=== PATIENT | female | born 1975 | race American Indian/Alaskan Native ===

== ENCOUNTER 2018-11-10 08:53 | Observation (INO) | payer SELFPAY ==
[2018-11-09 09:40] LABS: Basophils # (Auto) 0.1 K/mm3 (0.0-0.1); Basophils % (Auto) 0.6 % (0.0-1.8); Eosinophils # (Auto) 0.2 K/mm3 (0.0-0.4); Eosinophils % (Auto) 1.2 % (0.0-4.3); Hematocrit 27.5 % (30.3-42.9); Hemoglobin 8.9 gm/dl (10.1-14.3); Lymphocytes # (Auto) 3.1 K/mm3 (1.2-5.4); Lymphocytes % (Auto) 23.9 % (13.4-35.0); Mean Corpuscular HGB Conc 32 % (30-34); Mean Corpuscular Volume 78 fl (79-97); Monocytes # (Auto) 0.9 K/mm3 (0.0-0.8); Monocytes % (Auto) 6.9 % (0.0-7.3); Platelet Count 409 K/mm3 (140-440); Red Blood Count 3.51 M/mm3 (3.65-5.03)
--- NOTE | 2018-11-09 09:53 | Anesthesia Consultation ---
Anesthesia Consult and Med Hx Date of service: 11/09/18 - Airway Anesthetic Teeth Evaluation: Chipped ROM Head & Neck: Adequate Mental/Hyoid Distance: Adequate Mallampati Class: Class II Intubation Access Assessment: Probably Good - Pulmonary Exam CTA: Yes - Cardiac Exam Cardiac Exam: RRR - Pre-Operative Health Status ASA Pre-Surgery Classification: ASA3 Proposed Anesthetic Plan: General Nerve Block: discussed TAP block - Pre-Anesthesia Comment Pre-Anesthesia Comments: very nervous; doesn't want to know too much information regarding planp; states that mother had a hard time waking up to anesthesia; resulted in a prolonged hospital stay, denies MH or any adverse anesthesia reaction. s/p C/S under GA with no problems - Pulmonary Hx Smoking: Yes (2 cigarrettes/day ) - Cardiovascular System Hx Hypertension: No - Central Nervous System Hx Neuromuscular Disorder: No Hx Psychiatric Problems: No - Gastrointestinal Hx Gastroesophageal Reflux Disease: Yes (mild, no medications ) - Endocrine Hx Renal Disease: No - Hematic Hx Anemia: Yes Hx Sickle Cell Disease: Yes (Trait only) - Other Systems Hx Alcohol Use: Yes (occassional) Hx Cancer: No
[2018-11-09 09:57] LABS: Red Cell Distribution Width 20.7 % (13.2-15.2)
[~2018-11-10 08:53] MED LIST: NEURONTIN PO NR; PEPCID PO NR; VERSED IV NR
[2018-11-10] MEDS ORDERED: SUBLIMAZE IV NR (09:27)
--- NOTE | 2018-11-10 09:27 | Anesthesia Day of Surgery ---
Anesthesia Day of Surgery - Day of Surgery Patient Examined: Yes Patient H&P Reviewed: Yes Patient is NPO: Yes
[2018-11-10] MEDS ORDERED: SUBLIMAZE IV PRN (09:28)
[2018-11-10] MEDS ORDERED: ZOFRAN IV PRN (09:28)
[2018-11-10] MEDS ORDERED: DILAUDID IV PRN (09:28)
[2018-11-10] MEDS ORDERED: NEURONTIN PO NR (10:00)
[2018-11-10] MEDS ORDERED: TYLENOL PO NR (10:00)
[2018-11-10] MEDS ORDERED: TORADOL ONE (10:19)
[2018-11-10] MEDS ORDERED: DECADRON ONE ×2 (10:19→11:13)
[2018-11-10] MEDS ORDERED: XYLOCAINE MPF 2% ONE (10:19)
[2018-11-10] MEDS ORDERED: ZOFRAN ONE (10:19)
[2018-11-10] MEDS ORDERED: DILAUDID ONE ×2 (10:19→14:58)
[2018-11-10] MEDS ORDERED: ZEMURON IV ONE (10:19)
[2018-11-10] MEDS ORDERED: DIPRIVAN 10 MG/ML IV ONE (10:20)
--- NOTE | 2018-11-10 10:24 | History and Physical Report ---
History of Present Illness Date of examination: 11/10/18 Chief complaint: Symptomatic uterine fibroids History of present illness: Pt is a 43yo BF LMP 11/02/18 presents for surgical evaluation and treatment of uterine fibroids. She complains of prolonged heavy vaginal bleeding and pelvic pain. Pelvic u/s showed an enlarged uterus 13 x 8 x 7cm with multiple fibroids. She desires a Robotic Assisted Total Hysterectomy with ovarian conservation. 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 History: fibroids Family/Genetic History: sickle cell/trait Social history: no significant social history, single Medications and Allergies Allergies Allergy/AdvReac Type Severity Reaction Status Date / Time No Known Allergies Allergy Unverified 11/05/18 08:48 Home Medications Medication Instructions Recorded Confirmed Last Taken Type Atorvastatin Calcium [Lipitor] 10 mg PO DAILY 11/05/18 11/05/18 Unknown History Ferrous Sulfate [Iron 325 MG] 325 mg PO TID 11/05/18 11/05/18 Unknown History Gabapentin [Neurontin] 300 mg PO BID 11/05/18 11/05/18 Unknown History Vitamin D3 10,000 unit 1 tab PO QWEEK 11/05/18 11/05/18 Unknown History Active Meds: Active Medications Acetaminophen (Tylenol) 650 mg PO PREOP NR Stop: 11/10/18 14:00 Celecoxib (Celebrex) 200 mg PO PREOP NR Fentanyl (Sublimaze) 100 mcg IV ONCE NR Stop: 11/10/18 15:00 Fentanyl (Sublimaze) 50 mcg IV Q5MIN PRN PRN Reason: Pain , Severe (7-10) Gabapentin (Neurontin) 300 mg PO PREOP NR Stop: 11/10/18 13:00 Hydromorphone HCl (Dilaudid) 0.5 mg IV Q10MIN PRN PRN Reason: Pain , Severe (7-10) Stop: 11/10/18 20:00 Midazolam HCl (Versed) 2 mg IV PREOP NR Stop: 11/10/18 23:59 Ondansetron HCl (Zofran) 4 mg IV ONCE PRN PRN Reason: Nausea And Vomiting Review of Systems All systems: negative - Vital Signs Vital signs: Vital Signs Temp Pulse Resp BP Pulse Ox 98.5 F 92 H 20 139/92 100 11/09/18 09:15 11/09/18 09:15 11/09/18 09:15 11/09/18 09:15 11/09/18 09:15 Temp Pulse Resp BP Pulse Ox 98.5 F 92 H 20 139/92 100 11/09/18 09:15 11/09/18 09:15 11/09/18 09:15 11/09/18 09:15 11/09/18 09:15 - Physical Exam Breasts: Positive: deferred Cardiovascular: Regular rate Lungs: Positive: Clear to auscultation Abdomen: Positive: normal appearance, soft Genitourinary (Female): Positive: normal external genitalia Vagina: Positive: normal moisture Uterus: Positive: enlarged Extremities: Positive: normal Results Result Diagrams: 11/09/18 09:28 Abnormal lab results 11/10/18 Range/Units 10:20 POC Glucose 218 H (70-105) All other labs normal. Ultrasound: report reviewed Assessment and Plan - Patient Problems (1) Uterine fibroid Onset Date: 11/10/18 Current Visit: Yes Status: Acute Qualifiers: Uterine leiomyoma location: intramural, submucous, and subserous Qualified Code(s): D25.1 - Intramural leiomyoma of uterus; D25.0 - Submucous leiomyoma of uterus; D25.2 - Subserosal leiomyoma of uterus Plan to address problem: A: Symptomatic uterine fibroids Menorrhagia Chronic blood loss anemia P: Admit for a Robotic-Assisted Total Hysterectomy with Bilateral salpingectomy (2) Menorrhagia with regular cycle Onset Date: 11/10/18 Current Visit: Yes Status: Chronic (3) Chronic blood loss anemia Onset Date: 11/10/18 Current Visit: Yes Status: Chronic
[2018-11-10] MEDS ORDERED: NEOSPORIN GU IR ONE ×2 (10:29→13:03)
[2018-11-10] MEDS ORDERED: NACL 0.9% 1000 ML 1,000 ML ONE (10:30)
[2018-11-10] MEDS ORDERED: ANCEF/STERILE WATER 2 GM/20 ML 2 GM/20 ML SYRINGE IV NR (11:00)
[2018-11-10] MEDS ORDERED: NACL 0.9% 1000 ML 1,000 ML IV SCH (11:00)
[2018-11-10] MEDS ORDERED: MARCAINE-EPI 0.5%-1:200,000 INFILTRATI ONE (11:13)
[2018-11-10] MEDS ORDERED: XYLOCAINE 1% 20 mL ONE (11:13)
[2018-11-10] MEDS: VERSED IV NR ×2 (11:17→11:24)
[2018-11-10] MEDS ORDERED: NACL 0.9% IR ONE ×2 (13:03)
[2018-11-10] MEDS ORDERED: ROBINUL ONE (14:11)
[2018-11-10] MEDS ORDERED: BLOXIVERZ ONE (14:11)
--- NOTE | 2018-11-10 14:12 | Operative Report ---
Operative Report Operative Report: Date of procedure: 11/10/2018 Pre-operative diagnosis: 1. Symptomatic uterine fibroids 2. Menorrhagia 3. Chronic blood loss anemia Post-operative diagnosis: Same Procedure name(s): 1. Robotic-Assisted Total Hysterectomy 2. Bilateral salpingectomy Surgeon: Robby Melissa MD High Lift Driver: Masha Peters CSA Anesthesia: BREANNE Block followed by general endotracheal intubation EBL: Less than 100 mL's Findings: A 12-14 week size multiple myomatous uterus with a right hydrosalpinx and normal left fallopian tube. Normal ovaries bilaterally. Procedure: After the patient's first correctly identified she was prepped and draped in the usual sterile fashion and placed in the dorsolithotomy position. The bladder was first catheterized using Dickerson catheter and the speculum was placed in the vagina and the anterior lip of the cervix was grasped using a single-tooth tenaculum, and the medium Vesicare cup was placed. The tenaculum and speculum was then removed from the vagina and attention was then turned to the abdomen. The skin knife was used to make a small incision approximately 5 cm above the umbilicus through which a 12 mm trocar was placed under direct visualization. After adequate amount of abdominal insufflation visualization of the pelvic organs found the uterus to be enlarged and the tubes and ovaries were found to be normal bilaterally. A right and left paramedian incision was made through which the 8 mm trochars were placed under direct visualization and a 5 mm trocar was placed in the right lower quadrant. The patient was then placed in steep Trendelenburg positioning and the robot was docked on the patient's left side. After all the robotic ports were connected and adequate functioning of the robotic arms were tested the surgeon then proceeded to the console to begin the hysterectomy. First the left round ligament was grasped, cauterized and cut, the left utero- ovarian ligaments were grasped, cauterized and cut, and the left fallopian tube also grasped, cauterized and cut along the mesosalpinx, thus freeing the left ovary from the left uterine sidewall. The same procedure was performed on the right. The right round ligament was grasped, cauterized and cut, the right utero-ovarian ligaments were grasped, cauterized and cut, and the right fallopia n tube also grasped, cauterized and cut along the mesosalpinx, thus freeing the right ovary from the right uterine sidewall. The bladder flap was taken down anteriorly and the uterine vessels were grasped, cauterized and cut bilaterally. The cardinal ligaments were sequentially grasped, cauterized and cut down to the level of the uterosacral ligaments. At this time the posterior colpotomy was performed over the Vcare cup, and the cervix was circumscribed beginning posteriorly and meeting anteriorly until the cervix was freed. The cervix and uterus was then removed through the vagina and sent to pathology. The vaginal cuff was then closed using 2-0 Vloc suture in a running fashion. Irrigation was then performed and after good hemostasis was achieved the procedure was considered complete. The Tisseel sealant was then sprayed across the vaginal cuff site, and after excellent hemostasis was assured Interceed was placed across the vaginal cuff site. The intra-abdominal pressure was dropped to 8 mmHg and excellent hemostasis was assured. All instruments were then removed from the abdominal cavity. And each incision was closed using 0 Vicryl suture in a [id number] configuration on the fascia followed by 4-0 Monocryl suture in a sub-cuticular fashion on the skin. Each incision was also infiltrated using 0.5% Marcaine solution. The vaginal pack was removed. The patient tolerated the procedure well and was transported to the recovery room in stable condition.
[2018-11-10] MEDS ORDERED: TYLENOL PO PRN (14:13)
[2018-11-10] MEDS ORDERED: NARCAN 0.4 MG/1 ML IV PRN (14:13)
[2018-11-10] MEDS ORDERED: SODIUM CHLORIDE FLUSH SYRINGE 10 ML IV PRN (14:13)
[2018-11-10] MEDS ORDERED: PERCOCET 5/325 PO PRN (14:13)
[2018-11-10] MEDS ORDERED: MILK OF MAGNESIA PO PRN (14:13)
[2018-11-10] MEDS: ZOFRAN IV PRN ×2 (14:30→19:01)
[2018-11-10] MEDS ORDERED: D5LR 1,000 ML IV SCH (15:00)
--- NOTE | 2018-11-10 15:03 | Post Anesthesia Evaluation ---
- Post Anesthesia Evaluation Patient Participated: Yes Airway Patent: Yes Stable Respiratory Function: Yes Nausea/Vomiting: No Temp > 96.8F: Yes Pain Manageable: Yes Adequeate Hydration: Yes Anesthesia Complications: No
[2018-11-10] MEDS ORDERED: D50W (25GM) Syringe IV PRN (15:47)
[2018-11-10] MEDS: NORCO 5/325 PO PRN (18:32)
[2018-11-10] MEDS: TORADOL IV SCH ×2 (20:10→22:00)
[2018-11-10] MEDS: ANCEF/NS 1 GM/50 ML 1 GM/50 ML BAG IV SCH (20:44)
[2018-11-10] MEDS: COLACE PO SCH (22:00)
[2018-11-11] MEDS: HumuLIN R SUB-Q SCH ×3 (00:25→13:15)
[2018-11-11] MEDS: ANCEF/NS 1 GM/50 ML 1 GM/50 ML BAG IV SCH (03:36)
[2018-11-11] MEDS: TORADOL IV SCH ×2 (03:36→10:18)
[2018-11-11 06:23] LABS: Hematocrit 25.6 % (30.3-42.9); Hemoglobin 8.3 gm/dl (10.1-14.3)
--- NOTE | 2018-11-11 09:12 | Progress Note ---
Assessment and Plan - Patient Problems (1) Uterine fibroid Onset Date: 11/10/18 Current Visit: Yes Status: Resolved Qualifiers: Uterine leiomyoma location: intramural, submucous, and subserous Qualified Code(s): D25.1 - Intramural leiomyoma of uterus; D25.0 - Submucous leiomyoma of uterus; D25.2 - Subserosal leiomyoma of uterus (2) Menorrhagia with regular cycle Onset Date: 11/10/18 Current Visit: Yes Status: Resolved (3) Chronic blood loss anemia Onset Date: 11/10/18 Current Visit: Yes Status: Chronic (4) S/P robot-assisted surgical procedure Onset Date: 11/11/18 Current Visit: Yes Status: Resolved Plan to address problem: A: S/P RATH - POD #1 Doing well Asymptomatic anemia - stable P: May go home today. Subjective - Subjective Date of service: 11/11/18 Principal diagnosis: s/p RATH - POD #1 Interval history: Pt is feeling well s/p a Robotic Assisted Total Hysterectomy with bilateral salpingectomy. She is tolerating a reg diet without nausea or vomiting, ambulating and voiding without difficulty. Patient reports: appetite normal, voiding normally, pain well controlled, flatus, ambulating normally, no dizzy ambulation, no nauseated Objective - Vital Signs Latest vital signs: Vital Signs Temp Pulse Resp Resp BP BP Pulse Ox 11/11/18 04:25 98.2 F 89 18 133/81 100 11/10/18 23:55 99 11/10/18 23:54 97.5 F L 91 H 18 130/78 67 L 11/10/18 20:10 18 11/10/18 19:47 98.6 F 107 H 20 121/77 100 11/10/18 15:59 98.3 F 93 H 18 124/81 11/10/18 15:38 98 H 18 126/83 95 11/10/18 14:55 14 11/10/18 14:35 83 18 113/70 99 11/10/18 14:25 18 11/10/18 14:15 87 20 122/69 100 11/10/18 14:10 88 20 115/74 100 11/10/18 14:02 97 F L 94 H 20 118/72 100 11/10/18 11:47 16 11/10/18 11:35 116 H 18 116/66 100 11/10/18 11:32 115 H 22 127/80 100 11/10/18 11:29 104 H 17 110/70 100 11/10/18 11:26 99 H 16 115/71 100 11/10/18 11:23 92 H 19 119/72 100 11/10/18 11:20 99 H 19 120/70 100 11/10/18 11:17 99 H 17 132/98 100 11/10/18 11:14 96 H 12 128/78 100 11/10/18 11:11 97 H 16 120/75 100 11/10/18 10:15 16 11/10/18 09:35 98.2 F 106 H 18 132/79 98 11/10/18 09:30 98.2 F 106 H 18 132/79 98 Intake and Output 11/10/18 11/11/18 11/11/18 22:59 06:59 14:59 Intake Total 290 120 Output Total 1450 800 Balance -1160 -680 Intake: IV 50 ANCEF/NS 1 GM/50 ML 1 gm 50 In 50 ml @ 100 mls/hr IV Q8H [facility] Rx#:[id number] Oral 240 Intake, Free Water 120 Output: Urine 1450 800 Indwelling Catheter 900 Uretheral (Dickerson) 500 800 Other: Total, Intake Amount 240 Total, Output Amount 300 Voiding Method Indwelling Catheter Toilet - Exam Abdomen: Present: normal appearance, soft Extremities: Present: normal Incision: Present: normal, dry, intact - Labs Labs: Abnormal lab results 11/10/18 11/10/18 11/11/18 Range/Units 10:20 22:39 06:11 Hgb 8.3 L (10.1-14.3) gm/dl Hct 25.6 L (30.3-42.9) % POC Glucose 218 H 177 H (70-105) 11/11/18 Range/Units 08:39 Hgb (10.1-14.3) gm/dl Hct (30.3-42.9) % POC Glucose 150 H (70-105) Laboratory Tests 11/09/18 11/09/18 11/10/18 09:28 09:28 10:00 WBC 12.9 H RBC 3.51 L Hgb 8.9 L Hct 27.5 L MCV 78 L MCH 25 L MCHC 32 RDW 20.7 H Plt Count 409 Lymph % (Auto) 23.9 [place]wood % (Auto) 6.9 Eos % (Auto) 1.2 Baso % (Auto) 0.6 Lymph # 3.1 [place]wood # 0.9 H Eos # 0.2 Baso # 0.1 Seg Neutrophils % 67.4 Seg Neutrophils # 8.7 H POC Glucose HCG, Qual Negative Blood Type A POSITIVE Antibody Screen Negative 11/10/18 11/10/18 11/11/18 10:20 22:39 06:11 WBC RBC Hgb 8.3 L Hct 25.6 L MCV MCH MCHC RDW Plt Count Lymph % (Auto) [place]wood % (Auto) Eos % (Auto) Baso % (Auto) Lymph # [place]wood # Eos # Baso # Seg Neutrophils % Seg Neutrophils # POC Glucose 218 H 177 H HCG, Qual Blood Type Antibody Screen 11/11/18 08:39 WBC RBC Hgb Hct MCV MCH MCHC RDW Plt Count Lymph % (Auto) [place] % (Auto) Eos % (Auto) Baso % (Auto) Lymph # [place]wood # Eos # Baso # Seg Neutrophils % Seg Neutrophils # POC Glucose 150 H HCG, Qual Blood Type Antibody Screen
--- NOTE | 2018-11-11 09:39 | Discharge Summary ---
Providers - Providers Date of Admission: 11/10/18 14:13 Date of discharge: 11/11/18 Attending physician: HILARY ELI [facility] Reason for admission: other (Symptomatic uterine fibroids; Menorrhagia) Procedure: other (Robotic Assisted Total Hysterectomy with Bilateral salpingectomy) Laceration: none Incision: normal, dry, intact Other procedures: none complications: none Discharge diagnosis: other (s/p RATH) Hospital course: Pt is a 43yo BF LMP 11/02/18 who presented for surgical evaluation and treatment of uterine fibroids. She complained of prolonged heavy vaginal bleeding and pelvic pain. Pelvic u/s showed an enlarged uterus 13 x 8 x 7cm with multiple fibroids. She underwent an uncomplicated Robotic Assisted Total Hysterectomy with Bilateral salpingectomy, and tolerated the procedure well. By POD #1 she was tolerating a reg diet without nausea or vomiting, ambulating and voiding without difficulty. She will therefore be discharged to home on POD #1 in stable condition. Condition at discharge: Good Disposition: DC-01 TO HOME OR SELFCARE - Discharge Diagnoses (1) Uterine fibroid Status: Resolved Qualifiers: Uterine leiomyoma location: intramural, submucous, and subserous Qualified Code(s): D25.1 - Intramural leiomyoma of uterus; D25.0 - Submucous leiomyoma of uterus; D25.2 - Subserosal leiomyoma of uterus (2) Menorrhagia with regular cycle Status: Resolved (3) Chronic blood loss anemia Status: Chronic (4) S/P robot-assisted surgical procedure Status: Resolved Plan - Discharge Medications Prescriptions: Ibuprofen [Motrin] 800 mg PO Q8HR PRN #30 tablet PRN Reason: Pain, Mild (1-3) HYDROcodone/APAP 5-325 [Sumner 5-325 mg TAB] 1 each PO Q6HR PRN #30 tablet PRN Reason: Pain, Moderate (4-6) - Provider Discharge Summary Activity: routine, no sex for 6 weeks, no heavy lifting 4 weeks, no strenuous exercise Diet: routine Instructions: routine Additional instructions: [] Smoking cessation referral if applicable(refer to patient education folder for contact #) [] Refer to [facility] Booklet Call your doctor immediately for: * Fever > 100.5 * Heavy vaginal bleeding ( >1 pad per hour) * Severe persistent headache * Shortness of breath * Reddened, hot, painful area to leg or breast * Drainage or odor from incision. * Keep incision clean and dry at all times and follow doctor's instructions regarding bathing/showering - Follow up plan Follow up: HILARY ELI MD [Staff Physician] - 14 Days RICHMOND TANIA DODSON MD [Primary Care Provider] - 14 Days
[2018-11-11] MEDS: COLACE PO SCH (10:19)
[2018-11-11] MEDS: NORCO 5/325 PO PRN (10:24)
[2018-11-11 12:42] VITALS: BP 119/82
== END 2018-11-11 12:25 | disposition home or self-care (01) ==
LOC: OR 08:53 → OB 14:13
PROVIDERS: ADMIT Obstetrics & Gynecology; ATTEND Obstetrics & Gynecology
DX: D25.9 Leiomyoma of uterus, unspecified (principal); N92.0 Excessive and frequent menstruation with regular cycle; D50.0 Iron deficiency anemia secondary to blood loss (chronic); Z98.890 Other specified postprocedural states; Z79.899 Other long term (current) drug therapy; Z90.710 Acquired absence of both cervix and uterus
CPT/HCPCS: 36415; 58554; 82962; 84703; 85014; 85018; 85025; 86850; 86900; 86901; 88307; 88342; 96365; 96366; 96375; 96376; A4217; C1765; C9250; G0378; J0690; J1100; J1170; J1885; J2250; J2405; J2704; J2710; J3010; J7030; J7121; S2900; 88341

== ENCOUNTER 2018-11-19 10:55 | Inpatient (IN) | payer OTHER, SELFPAY ==
[2018-11-19] MEDS ORDERED: ZOFRAN IV ONE (11:08)
[2018-11-19] MEDS ORDERED: MORPHINE IV ONE (11:08)
--- NOTE | 2018-11-19 11:15 | Emergency Department Report ---
Blank Doc - Documentation Documentation: 43 y/o female comes in s/p Hysterectomy 11/10/18 and is having severe abd pain. Surgeon Dr. Robby Melissa OB/ DRILLING MACHINE RUNNER Orderes has been placed.
[2018-11-19] MEDS ORDERED: NACL 0.9% 500 ML 500 ML IV ONE (11:37)
[2018-11-19 11:44] LABS: Alanine Aminotransferase 37 units/L (7-56); Albumin 3.7 g/dL (3.9-5); BUN/Creatinine Ratio 10; Basophils # (Auto) 0.1 K/mm3 (0.0-0.1); Basophils % (Auto) 1.3 % (0.0-1.8); Blood Urea Nitrogen 6 mg/dL (7-17); Calcium 9.5 mg/dL (8.4-10.2); Eosinophils # (Auto) 0.1 K/mm3 (0.0-0.4); Eosinophils % (Auto) 1.1 % (0.0-4.3); Hemoglobin 9.6 gm/dl (10.1-14.3); Hemolysis Index 53; Lymphocytes # (Auto) 2.3 K/mm3 (1.2-5.4); Lymphocytes % (Auto) 20.4 % (13.4-35.0); Mean Corpuscular HGB Conc 32 % (30-34); Mean Corpuscular Volume 80 fl (79-97); Monocytes # (Auto) 0.7 K/mm3 (0.0-0.8); Monocytes % (Auto) 6.6 % (0.0-7.3); Platelet Count 571 K/mm3 (140-440); Red Blood Count 3.74 M/mm3 (3.65-5.03)
[2018-11-19 11:47] LABS: Red Cell Distribution Width 22.9 % (13.2-15.2)
--- NOTE | 2018-11-19 12:19 | Emergency Department Report ---
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 The patient is not known to this provider previously. The patient reports a history of high cholesterol, and possible diabetic neuropathy The patient had a robotic-assisted total hysterectomy, and bilateral salpingectomy performed on 11/10/2018. She presents to the emergency room with a complaint of abdominal pain. The abdominal pain is diffuse, and present since the patient recovered from surgery. The pain is achy and sharp, increases with palpation and decreases with rest. She vomited a few times last week. She's not been defecating as often as she typically does. Her last episode of defecat ion was last night. She is passing gas. She denies fever. She denies chest pain. She denies shortness of breath. She makes no complaint of leg pain or leg swelling. She also endorses that postoperatively, her urinary sensations appear to have changed. She denies dysuria. She reports that she is able to hold her urine, and she has not accidentally urinated on herself. However, she reports that her sensation of needing to void is not present away it was prior to the surgery. -: Gradual, week(s) Location: abdomen Radiation: non-radiation Severity scale (0 -10): 5 Quality: aching Consistency: other Improves with: other - Related Data Home Medications Medication Instructions Recorded Confirmed Last Taken Atorvastatin Calcium [Lipitor] 10 mg PO DAILY 11/05/18 11/10/18 11/08/18 09:00 Ferrous Sulfate [Iron 325 MG] 325 mg PO TID 11/05/18 11/10/18 11/08/18 09:00 Gabapentin [Neurontin] 300 mg PO BID 11/05/18 11/10/18 Unknown Vitamin D3 10,000 unit 1 tab PO QWEEK 11/05/18 11/10/18 11/09/18 09:00 Previous Rx's Medication Instructions Recorded Last Taken Type HYDROcodone/APAP 5-325 [[place] 1 each PO Q6HR PRN #30 tablet 11/11/18 Unknown Rx 5-325 mg TAB] Ibuprofen [Motrin] 800 mg PO Q8HR PRN #30 tablet 11/11/18 Unknown Rx Allergies Allergy/AdvReac Type Severity Reaction Status Date / Time No Known Allergies Allergy Verified 11/19/18 10:57 ED Review of Systems ROS: Stated complaint: ABD PAIN Other details as noted in HPI Constitutional: denies: fever Eyes: denies: eye discharge ENT: denies: ear pain Respiratory: denies: cough, shortness of breath Cardiovascular: denies: chest pain Gastrointestinal: abdominal pain, nausea, vomiting Genitourinary: denies: urgency, dysuria, hematuria, discharge Musculoskeletal: denies: back pain Skin: denies: lesions Neurological: denies: weakness, numbness, paresthesias, confusion Psychiatric: anxiety ED Past Medical Hx - Past Medical History Hx Hypertension: Yes Hx Congestive Heart Failure: No Hx Diabetes: Yes Hx Asthma: No Hx COPD: No Additional medical history: HIGH CHOLESTROL - Surgical History Additional Surgical History: HYSTO - Social History Smoking Status: Current Every Day Smoker Substance Use Type: None - Medications Home Medications: Home Medications Medication Instructions Recorded Confirmed Last Taken Type Atorvastatin Calcium [Lipitor] 10 mg PO DAILY 11/05/18 11/10/18 11/08/18 09:00 History Ferrous Sulfate [Iron 325 MG] 325 mg PO TID 11/05/18 11/10/18 11/08/18 09:00 History Gabapentin [Neurontin] 300 mg PO BID 11/05/18 11/10/18 Unknown History Vitamin D3 10,000 unit 1 tab PO QWEEK 11/05/18 11/10/18 11/09/18 09:00 History HYDROcodone/APAP 5-325 [[place] 1 each PO Q6HR PRN #30 tablet 11/11/18 Unknown Rx 5-325 mg TAB] Ibuprofen [Motrin] 800 mg PO Q8HR PRN #30 tablet 11/11/18 Unknown Rx ED Physical Exam - General Limitations: No Limitations General appearance: alert, in no apparent distress - Head Head exam: Present: atraumatic, normocephalic - Eye Eye exam: Present: normal appearance, EOMI. Absent: nystagmus - ENT ENT exam: Present: normal exam, normal orophraynx, mucous membranes moist, normal external ear exam - Neck Neck exam: Present: normal inspection, full ROM. Absent: tenderness, meningismus - Respiratory Respiratory exam: Present: normal lung sounds bilaterally. Absent: respiratory distress - Cardiovascular Cardiovascular Exam: Present: regular rate, normal rhythm, normal heart sounds. Absent: bradycardia, tachycardia, irregular rhythm, systolic murmur, diastolic murmur, rubs, gallop - GI/Abdominal GI/Abdominal exam: Present: soft, tenderness, other (surgical sites appear to be healing well, with no redness, pus or streaking). Absent: distended, guarding, rebound, rigid, pulsatile mass - Extremities Exam Extremities exam: Present: normal inspection, full ROM, other (2+ pulses noted in the bilateral upper, lower extremities. Compartments soft. No long bony tenderness. The pelvis is stable.). Absent: pedal edema, joint swelling, calf tenderness - Back Exam Back exam: Present: normal inspection, full ROM. Absent: tenderness, CVA tenderness (R), paraspinal tenderness, vertebral tenderness - Neurological Exam Neurological exam: Present: alert, normal gait, other (Extraocular movements intact. Tongue midline. No facial droop. Facial sensation intact to light touch in the V1, V2, V3 distribution bilaterally. 5 and 5 strength in 4 extremities.. Sensation is intact to light touch in 4 extremities.). Absent: motor sensory deficit - Psychiatric Psychiatric exam: Present: normal affect, normal mood - Skin Skin exam: Present: warm, dry, intact, normal color. Absent: rash ED Course Vital Signs 11/19/18 11/19/18 11/19/18 11:06 11:31 15:12 Temperature 97.8 F Pulse Rate 107 H 93 H 91 H Respiratory 18 19 16 Rate Blood Pressure 146/89 Blood Pressure 108/69 [Left] O2 Sat by Pulse 100 100 96 Oximetry - Reevaluation(s) Reevaluation #1: 11/19/18 12:20 Differential diagnosis, including but not limited to: Retained foreign body, obstruction, infection, post anesthetic medication side effect, opioid medi cation side effect, constipation, decreased her dysfunction Assessment and plan: 43-year-old female with abdominal pain since her recent gynecologic surgery. She is afebrile with reassuring vital signs. She is tender diffusely. She does not appear to have rebound. Patient is also able to urinate and control her urination, but endorses nonspecific change in sensation of needing to void. We will obtain CT scan of the abdomen and pelvis with IV, oral contrast. Extensive discussion had with t he patient regarding risks of CT scan with IV contrast, including exposure to ionizing radiation, and potential risk of anaphylactic/anaphylactoid side effects secondary to contrast administration. Patient has provided informed consent. We will treat her symptoms and her pain. We will discuss with her fitter hand after the CT scan has resulted. She will need to follow up with an outpatient urologist, or uro fitter hand for further evaluation of her nonspecific urinary symptoms. Reevaluation #2: 11/19/18 16:47 CT scan suggests abscesses. Antibiotics ordered. Contacted the patient's covering fitter hand, Dr. Melissa, who has accepted the patient to his service. Discussed this with patient who verbalizes understanding, and is amenable to hospitalization. ED Medical Decision Making - Lab Data Result diagrams: 11/19/18 11:20 11/19/18 11:20 Vital Signs 11/19/18 11/19/18 11:06 11:31 Temperature 97.8 F Pulse Rate 107 H 93 H Respiratory 18 19 Rate Blood Pressure 146/89 O2 Sat by Pulse 100 100 Oximetry Lab Results 11/19/18 11/19/18 Range/Units 11:20 11:20 WBC 11.0 (4.5-11.0) K/mm3 RBC 3.74 (3.65-5.03) M/mm3 Hgb 9.6 L (10.1-14.3) gm/dl Hct 30.0 L (30.3-42.9) % MCV 80 (79-97) fl MCH 26 L (28-32) pg MCHC 32 (30-34) % RDW 22.9 H (13.2-15.2) % Plt Count 571 H (140-440) K/mm3 Lymph % (Auto) 20.4 (13.4-35.0) % Rankin % (Auto) 6.6 (0.0-7.3) % Eos % (Auto) 1.1 (0.0-4.3) % Baso % (Auto) 1.3 (0.0-1.8) % Lymph # 2.3 (1.2-5.4) K/mm3 Rankin # 0.7 (0.0-0.8) K/mm3 Eos # 0.1 (0.0-0.4) K/mm3 Baso # 0.1 (0.0-0.1) K/mm3 Seg Neutrophils % 70.6 H (40.0-70.0) % Seg Neutrophils # 7.8 H (1.8-7.7) K/mm3 Sodium 139 (137-145) mmol/L Potassium 4.9 (3.6-5.0) mmol/L Chloride 101.2 (98-107) mmol/L Carbon Dioxide 22 (22-30) mmol/L Anion Gap 21 mmol/L BUN 6 L (7-17) mg/dL Creatinine 0.6 L (0.7-1.2) mg/dL Estimated GFR > 60 ml/min BUN/Creatinine Ratio 10 % Glucose 181 H (65-100) mg/dL Calcium 9.5 (8.4-10.2) mg/dL Total Bilirubin < 0.20 (0.1-1.2) mg/dL AST 41 H (5-40) units/L ALT 37 (7-56) units/L Alkaline Phosphatase 121 (35-129) units/L Total Protein 8.0 (6.3-8.2) g/dL Albumin 3.7 L (3.9-5) g/dL Albumin/Globulin Ratio 0.9 % - Radiology Data Radiology results: report reviewed, image reviewed Print Report Referring Physician: YONY MORRIS Patient Name: LEDA GOODMAN Date of : 1975 Sex: Female Report Date: 2018-11-19 Report Status: [place] [address] Cat Scan Report Signed Patient: LEDA GOODMAN MR#: [id number] : 1975 Acct:[id number] Age/Sex: 43 / F ADM Date: 11/19/18 Loc: ED Attending Dr: Ordering Physician: YONY MORRIS MD Date of Service: 11/19/18 Procedure(s): CT abdomen pelvis w con Accession Number(s): [id number] cc: YONY MORRIS MD PROCEDURE: CT ABDOMEN PELVIS W CON TECHNIQUE: Computerized axial tomography of the abdomen and pelvis was performed without intravenous contrast. This study is performed without intravascular contrast mat erial and its sensitivity for abdominal and pelvic pathology, including neoplasms, inflammation, abscess, free fluid, thrombosis, arterial dissection and infarction, is reduced compared with a contrast enhanced study. CT DOSE LENGTH PRODUCT: 3028 mGycm HISTORY: abd pain s/p hysterectomy. IV and oral contrast COMPARISONS: None . FINDINGS: Lower Lung gamez: No focal abnormalities seen. Upper Abdomen: Liver density mildly diffusely decreased. No discrete liver lesions are identified. The appearance suggests fatty infiltration. The gallbladder, the adrenal glands, the pancreas and spleen are unremarkable. Kidneys, Ureters and Urinary bladder: No abnormalities are seen. Retroperitoneum: Abdominal aorta appears normal. Nonspecific subcentimeter lymph nodes are seen in the retroperitoneum. No pathologically enlarged lymph nodes are identified. Bowel: No focal bowel loop abnormalities are identified. No evidence of bowel obstruction or free intraperitoneal gas. Normal-appearing appendix. The visualized right lower quadrant directed medially. Small to moderate-sized umbilical hernia containing adipose tissue is visualized. No herniated loops of bowel are seen. There appears to be a second anterior abdominal wall hernia seen best on sagittal image 98 series 601 which appears to contain edematous adipose tissue.. This is located superior to the umbilicus. Irregular shaped fluid collections are seen in the pelvis.. One of these fluid collection contains multiple bubbles of gas located mid pelvis.. I cannot exclude an abscess. This collection measures 6.7 cm transverse, 2.7 cm AP on image 153 series 2. Additional smaller fluid collection seen just anterior to the rectum measuring 3.5 x 2.4 cm. . Reproductive organs: The uterus is surgically absent. No abnormal adnexal masses are seen. Other: No acute bone abnormalities are identified. IMPRESSION: 2 fluid collections are seen in the pelvis, small fluid collection anterior to the rectum and a second fluid collection in the mid pelvis. The larger of the 2 is in the mid pelvis and contains multiple bubbles of gas. The appearance is worrisome for abscess. Umbilical hernia present as described as well as additional small anterior abdominal wall hernia in the midline superior to the umbilicus. This appears to contain a small amount of adipose tissue which appears dense suggesting diffuse edema. Please see above image reference May. Prior hysterectomy. Fatty infiltration of the liver. This document is electronically signed by Julian Josue MD., Nov 19 2018 04:38:26 PM ET Transcribed By: DFN Dictated By: JULIAN JOSUE MD Electronically Authenticated By: JULIAN JOSUE MD Signed Date/Time: 11/19/18 [facility] Critical care attestation.: If time is entered above; I have spent that time in minutes in the direct care of this critically ill patient, excluding procedure time. ED Disposition Clinical Impression: Postoperative pain, Intra-abdominal abscess Disposition: OP ADMIT IP TO THIS HOSP Is pt being admited?: Yes Condition: Good Instructions: Abdominal Pain (ED) Referrals: [place] [Other] - 3-5 Days
[2018-11-19 12:24] LABS: Bilirubin,Urine NEG (Negative); Blood,Urine NEG (Negative); Color,Urine Yellow (Yellow); Protein,Urine <15 mg/dL mg/dL (Negative); RBC,Urine < 1.0 /HPF (0.0-6.0); Urobilinogen,Urine < 2.0 mg/dL (<2.0)
--- NOTE | 2018-11-19 16:40 | Cat Scan Report ---
PROCEDURE: CT ABDOMEN PELVIS W CON TECHNIQUE: Computerized axial tomography of the abdomen and pelvis was performed without intravenous contrast. This study is performed without intravascular contrast material and its sensitivity for ab dominal and pelvic pathology, including neoplasms, inflammation, abscess, free fluid, thrombosis, art erial dissection and infarction, is reduced compared with a contrast enhanced study. CT DOSE LENGTH PRODUCT: 3028 mGycm HISTORY: abd pain s/p hysterectomy. IV and oral contrast COMPARISONS: None . FINDINGS: Lower Lung gamez: No focal abnormalities seen. Upper Abdomen: Liver density mildly diffusely decreased. No discrete liver lesions are identified. T he appearance suggests fatty infiltration. The gallbladder, the adrenal glands, the pancreas and sple en are unremarkable. Kidneys, Ureters and Urinary bladder: No abnormalities are seen. Retroperitoneum: Abdominal aorta appears normal. Nonspecific subcentimeter lymph nodes are seen in the retroperitoneum. No pathologically enlarged ly mph nodes are identified. Bowel: No focal bowel loop abnormalities are identified. No evidence of bowel obstruction or free in traperitoneal gas. Normal-appearing appendix. The visualized right lower quadrant directed medially. Small to moderate-sized umbilical hernia containing adipose tissue is visualized. No herniated loops of bowel are seen. There appears to be a second anterior abdominal wall hernia seen best on sagittal image 98 series 601 which appears to contain edematous adipose tissue.. This is located superior to t he umbilicus. Irregular shaped fluid collections are seen in the pelvis.. One of these fluid collection contains mu ltiple bubbles of gas located mid pelvis.. I cannot exclude an abscess. This collection measures 6.7 cm transverse, 2.7 cm AP on image 153 series 2. Additional smaller fluid collection seen just anterio r to the rectum measuring 3.5 x 2.4 cm. . Reproductive organs: The uterus is surgically absent. No abnormal adnexal masses are seen. Other: No acute bone abnormalities are identified. IMPRESSION: 2 fluid collections are seen in the pelvis, small fluid collection anterior to the rectum and a secon d fluid collection in the mid pelvis. The larger of the 2 is in the mid pelvis and contains multiple bubbles of gas. The appearance is worrisome for abscess. Umbilical hernia present as described as well as additional small anterior abdominal wall hernia in t he midline superior to the umbilicus. This appears to contain a small amount of adipose tissue which appears dense suggesting diffuse edema. Please see above image reference May. Prior hysterectomy. Fatty infiltration of the liver. This document is electronically signed by Julian Eisenberg MD., Nov 19 2018 04:38:26 PM ET
[2018-11-19] MEDS ORDERED: FLAGYL 500 MG/100 ML 500 MG/100 ML BAG IV ONE (16:44)
[2018-11-19] MEDS ORDERED: ZOSYN/NS 4.5GM/100ML 4.5 GM/100 ML VIAL IV ONE (16:44)
--- NOTE | 2018-11-19 20:00 | History and Physical Report ---
History of Present Illness Date of examination: 11/19/18 Date of admission: 11/19/18 16:48 Chief complaint: Pelvic pain History of present illness: Pt is a 43yo BF who is s/p an uncomplicated Robotic Assisted Total Hysterectomy with Bilateral salpingectomy on 11/10/18 presents to the emergency room with a complaint of abdominal pain. The abdominal pain is diffuse, and present since her surgery. The pain is achy and sharp, increases with palpation and decreases with rest. She vomited a few times last week. She's not been defecating as often as she typically does. Her last episode of defecation was last night. She is passing gas. She denies fever. She denies chest pain. She denies shortness of breath. She makes no complaint of leg pain or leg swelling. She also endorses that postoperatively, her urinary sensations appear to have changed. She denies dysuria. She reports that she is able to hold her urine, and she has not accidentally urinated on herself. However, she reports that her sensation of needing to void is not present away it was prior to the surgery. Her CT Scan showed 2 fluid collections in the pelvis - 7.7 x 2.7cm and 3.5 x 2.4cm, most likely representing pelvic abscesses. Her WBC was 11.0 She will therefore be admitted for IV antibiotics and possible drainage by Interventional Radiology. 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 Family/Genetic History: sickle cell/trait Social history: no significant social history, single Medications and Allergies Allergies Allergy/AdvReac Type Severity Reaction Status Date / Time No Known Allergies Allergy Verified 11/19/18 10:57 Home Medications Medication Instructions Recorded Confirmed Last Taken Type Atorvastatin Calcium [Lipitor] 10 mg PO DAILY 11/05/18 11/19/18 11/08/18 09:00 History Ferrous Sulfate [Iron 325 MG] 325 mg PO TID 11/05/18 11/19/18 11/08/18 09:00 History Gabapentin [Neurontin] 300 mg PO BID 11/05/18 11/19/18 Unknown History Vitamin D3 10,000 unit 1 tab PO QWEEK 11/05/18 11/19/18 11/09/18 09:00 History HYDROcodone/APAP 5-325 [[place] 1 each PO Q6HR PRN #30 tablet 11/11/18 11/19/18 Unknown Rx 5-325 mg TAB] Ibuprofen [Motrin] 800 mg PO Q8HR PRN #30 tablet 11/11/18 11/19/18 Unknown Rx Review of Systems All systems: negative - Vital Signs Vital signs: Vital Signs Temp Pulse Resp BP Pulse Ox 97.8 F 107 H 18 146/89 100 11/19/18 11:06 11/19/18 11:06 11/19/18 11:06 11/19/18 11:06 11/19/18 11:06 Temp Pulse Resp BP Pulse Ox 100.0 F H 92 H 16 142/90 100 11/19/18 18:01 11/19/18 18:38 11/19/18 18:20 11/19/18 18:01 11/19/18 18:09 - Physical Exam Breasts: Positive: deferred Cardiovascular: Regular rate Lungs: Positive: Clear to auscultation Abdomen: Positive: normal appearance, soft Genitourinary (Female): Positive: normal external genitalia Cervix: Positive: absent Uterus: Positive: absent Extremities: Positive: normal Results Result Diagrams: 11/19/18 11:20 11/19/18 11:20 Abnormal lab results 11/19/18 11/19/18 Range/Units 11:20 11:20 Hgb 9.6 L (10.1-14.3) gm/dl Hct 30.0 L (30.3-42.9) % MCH 26 L (28-32) pg RDW 22.9 H (13.2-15.2) % Plt Count 571 H (140-440) K/mm3 Seg Neutrophils % 70.6 H (40.0-70.0) % Seg Neutrophils # 7.8 H (1.8-7.7) K/mm3 BUN 6 L (7-17) mg/dL Creatinine 0.6 L (0.7-1.2) mg/dL Glucose 181 H (65-100) mg/dL AST 41 H (5-40) units/L Albumin 3.7 L (3.9-5) g/dL All other labs normal. CT scan - pelvis: report reviewed Assessment and Plan - Patient Problems (1) Intra-abdominal abscess Onset Date: 11/19/18 Current Visit: Yes Status: Acute Plan to address problem: A: Pelvic pain - most likely due to pelvic abscesses Pelvic abscesses - s/p Robotic hysterectomy P: Will admit for IV antibiotics and/or possible drainage per Interventional Radiology Consult with ID (2) Postoperative pain Onset Date: 11/19/18 Current Visit: Yes Status: Acute
[2018-11-19] MEDS ORDERED: SODIUM CHLORIDE FLUSH SYRINGE 10 ML IV PRN (20:18)
[2018-11-19] MEDS ORDERED: MILK OF MAGNESIA PO PRN (20:18)
[2018-11-19] MEDS ORDERED: COLACE PO PRN (20:18)
[2018-11-19] MEDS ORDERED: ZOFRAN IV PRN (20:18)
[2018-11-19] MEDS ORDERED: TORADOL IV PRN (20:23)
[2018-11-19] MEDS: FLAGYL 500 MG/100 ML 500 MG/100 ML BAG IV SCH (21:22)
[2018-11-19] MEDS: ROCEPHIN/NS 1 GM/50 ML 1 GM/50 ML BAG IV SCH (21:22)
[2018-11-19] MEDS: PERCOCET 5/325 PO PRN (21:23)
[2018-11-19] MEDS: LACTATED RINGERS 1,000 ML IV SCH (21:23)
[2018-11-20] MEDS: TYLENOL PO PRN ×2 (04:01→08:30)
[2018-11-20] MEDS: ROCEPHIN/NS 1 GM/50 ML 1 GM/50 ML BAG IV SCH (09:39)
[2018-11-20] MEDS: LACTATED RINGERS 1,000 ML IV SCH (09:39)
[2018-11-20] MEDS: FLAGYL 500 MG/100 ML 500 MG/100 ML BAG IV SCH (10:20)
[2018-11-20] MEDS ORDERED: VERSED IV ONE ×2 (13:22→13:29)
[2018-11-20] MEDS ORDERED: SUBLIMAZE IV ONE (13:22)
[2018-11-20] MEDS ORDERED: SUBLIMAZE ONE (13:29)
--- NOTE | 2018-11-20 15:23 | Event Note ---
Date: 11/20/18 Patient was brought to the CT scanner in anticipation of a CT-guided drainage procedure for pelvic abscess. The area of the pelvic abscess has significantly decreased from prior CT scan. Would recommend placing the patient on antibiotics and repeating the CT scan in 2-3 days to document resolution of the abscess.
--- NOTE | 2018-11-20 15:46 | Consultation ---
History of Present Illness - Reason for Consult Consult date: 11/20/18 pelvic collection Requesting physician: HILARY ELI - History of Present Illness 43 y/o female with no medical history admitted on 11/19/2018 due to worsening pelvic pain for 3 days. She has a Robotic Assisted Total Hysterectomy with Bilateral salpingectomy on 11/10/2018 without immediate complications. Since surgery, she has had some pelvic pain but has become 10 of 10, sharp. Denies N/V/D, dysuria, hematuria. In the ED, temp 100. WBC was normal. CT abdomen showed 2 fluid collections in the pelvis - 7.7 x 2.7cm and 3.5 x 2.4cm, most likely representing pelvic abscesses. Review of Systems: General: no fever, chills, nightsweats, unintentional weight change, or change in appetite Cutaneous: no rash, pruritus Head: no headaches or injury Eyes: no changes in vision, eye pain, double vision Ears: no ear pain, ear discharge, ringing or hearing loss Nose: no nose bleeding, stuffiness Mouth & throat: no bleeding gums, no horseness, no dental problems, or swollen glands Neck: no pain, node enlargement/lumps, tyroid enlargement or tenderness Respiratory: no cough, wheezing, sputum, hemoptysis, pleuritic chest pain Cardiovascular: no chest pain, leg edema, cyanosis, RENDON, orthopnea Musculoskeletal: no decreased joint motion, bone or joint pain, joint swelling, muscle aches Gastrointestinal: +pelvic pain, no discharge, no nausea, vomiting, hematemesis, diarrhea, constipation, melena, bright red blood in stools, fecal incontinence, jaundice Genitourinary/Reproductive: no frequent urination, dysuria, hematuria, incontinence Neurogical: no seizures, no headaches, no weakness, no paresthesias, no loss of speech or vision; no memory loss, no vertigo, no tremors, no numbness Psychiatric: stable mood; no excessive anxiety, sadness or moodiness Past History Social history: no significant social history, single Medications and Allergies Allergies Allergy/AdvReac Type Severity Reaction Status Date / Time No Known Allergies Allergy Verified 11/19/18 20:31 Home Medications Medication Instructions Recorded Confirmed Last Taken Type Atorvastatin Calcium [Lipitor] 10 mg PO DAILY 11/05/18 11/19/18 11/08/18 09:00 History Ferrous Sulfate [Iron 325 MG] 325 mg PO TID 11/05/18 11/19/18 11/08/18 09:00 History Gabapentin [Neurontin] 300 mg PO BID 11/05/18 11/19/18 Unknown History Vitamin D3 10,000 unit 1 tab PO QWEEK 11/05/18 11/19/18 11/09/18 09:00 History HYDROcodone/APAP 5-325 [[place] 1 each PO Q6HR PRN #30 tablet 11/11/18 11/19/18 Unknown Rx 5-325 mg TAB] Ibuprofen [Motrin] 800 mg PO Q8HR PRN #30 tablet 11/11/18 11/19/18 Unknown Rx Active Meds: Active Medications Acetaminophen (Tylenol) 650 mg PO Q4H PRN PRN Reason: Pain MILD(1-3)/Fever >100.5/STARK Last Admin: 11/20/18 08:30 Dose: 650 mg Documented by: Docusate Sodium (Colace) 100 mg PO Q12H PRN PRN Reason: Constipation Ceftriaxone Sodium (Rocephin/Ns 1 Gm/50 Ml) 1 gm in 50 mls @ 100 mls/hr IV Q 12HR RAJ; Protocol Last Admin: 11/20/18 09:39 Dose: 100 mls/hr Documented by: Lactated Ringer's (Lactated Ringers) 1,000 mls @ 125 mls/hr IV DIRECT RAJ Last Admin: 11/20/18 09:39 Dose: 125 mls/hr Documented by: Metronidazole (Flagyl 500 Mg/100 Ml) 500 mg in 100 mls @ 100 mls/hr IV Q12HR RAJ; Protocol Last Admin: 11/20/18 10:20 Dose: 100 mls/hr Documented by: Ketorolac Tromethamine (Toradol) 30 mg IV Q6H PRN PRN Reason: Pain, Moderate (4-6) Stop: 11/24/18 20:22 Last Admin: 11/20/18 04:02 Dose: 30 mg Documented by: Magnesium Hydroxide (Milk Of Magnesia) 30 ml PO QHS PRN PRN Reason: Laxative Effect Ondansetron HCl (Zofran) 4 mg IV Q6H PRN PRN Reason: Nausea And Vomiting Oxycodone/Acetaminophen (Percocet 5/325) 2 tab PO Q6H PRN PRN Reason: Pain, Moderate (4-6) Last Admin: 11/19/18 21:23 Dose: 2 tab Documented by: Sodium Chloride (Sodium Chloride Flush Syringe 10 Ml) 10 ml IV PRN PRN PRN Reason: LINE FLUSH Physical Examination - Physical Exam Narrative exam: General appearance: Alert in NAD, conversant Eyes: anicteric sclerae, moist conjunctivae; no lid-lag; PERRLA HENT: Atraumatic; oropharynx clear with moist mucous membranes and no mucosal ulcerations/no oral thrush; normal hard and soft palate. Normal external ears. Neck: Trachea midline; supple, no thyromegaly or lymphadenopathy Lungs: CTA, with normal respiratory effort and no intercostal retractions CV: RRR, no murmurs Abdomen: Soft, mild SP tenderness no rebound Extremities: No peripheral edema or extremity lymphadenopathy Skin: Normal temperature, turgor and texture; no rash, ulcers or subcutaneous nodules Psych: Appropriate affect, alert and oriented to person, place and time. Neuro: alert and oriented x 3. Moving all extermities - Constitutional Vitals: Vital Signs Temp Pulse Resp BP Pulse Ox 97.6 F 80 12 121/80 99 11/20/18 12:19 11/20/18 13:59 11/20/18 13:59 11/20/18 13:59 11/20/18 13:59 Temperature -Last 24 Hours Temperature 97.6 F Temperature 98.4 F Temperature 99 F Temperature 98.7 F Temperature 98.7 F Temperature 99.0 F Temperature 99 F Temperature 100.0 F Results - Labs CBC & Chem 7: 11/19/18 11:20 11/19/18 11:20 Assessment and Plan Cultures: Blood culture 11/19/2018 no growth today Assessment: 43 y/o female with no medical history admitted on 11/19/2018 due to worsening pelvic pain for 3 days: 1) Pelvic collections ? hematoma v/s abscesses post hysterectomy: She had a Robotic Assisted Total Hysterectomy with Bilateral salpingectomy on 11/10/2018 without immediate complications. Since surgery, she has had some pelvic pain but has become 10 of 10, sharp. Denies N/V/D, dysuria, hematuria. In the ED, temp 100. WBC was normal. Ua negative. CT abdomen showed 2 fluid collections in the pelvis - 7.7 x 2.7cm and 3.5 x 2.4cm, most likely representing pelvic abscesses. Evaluated by IR and collections are smaller. 2) Fever: likely from 1. Resolved. Recommendations: - follow-up blood cultures - obtain C-reactive protein (CRP) - if not fever ok to d/c home on levaquin 750 mg PO qday and flagyl 500 mg PO TID for 10 days - ID clinic f/u in 2-3 weeks Will follow. Ambar Zamudio MD Infectious Diseases Medical Records [employer] [facility] M [phone] O [phone]
--- NOTE | 2018-11-20 18:05 | Discharge Summary ---
Providers - Providers Date of Admission: 11/19/18 16:48 Date of discharge: 11/20/18 Attending physician: HILARY ELI 11/19/18 16:44 Consult to Physician [CONS] Urgent Comment: Consulting Provider: HILARY ELI Physician Instructions: Reason For Exam: post op pain 11/19/18 20:18 Consult to Physician [CONS] Routine Comment: Consulting Provider: MAEVE LOPEZ Physician Instructions: Antibiotic coverage Reason For Exam: Pelvic abscess 11/19/18 20:27 Consult to Interventional Radiology [CONS] Routine Consulting Provider: CARMEN COBOS Reason For Exam: Pelvic abscess Place consult to:: Dr Cobos Notified:: office Phone number called:: [phone] Was contact made?: Yes Time called:: 20:36 Hospitalization Reason for admission: other (Pelvic pain; Pelvic abscess) Procedure: other (Attempted IR drainage - too small to drain) Incision: normal, dry, intact Other procedures: none complications: none Discharge diagnosis: other (Pelvic pain; Pelvic abscess - improved.) Pertinent studies: CT Scan of pelvis Hospital course: Assessment: 43 y/o female with no medical history admitted on 11/19/2018 due to worsening pelvic pain for 3 days: 1) Pelvic collections ? hematoma v/s abscesses post hysterectomy: She had a Robotic Assisted Total Hysterectomy with Bilateral salpingectomy on 11/10/2018 without immediate complications. Since surgery, she has had some pelvic pain but has become 10 of 10, sharp. Denies N/V/D, dysuria, hematuria. In the ED, temp 100. WBC was normal. Ua negative. CT abdomen showed 2 fluid collections in the pelvis - 7.7 x 2.7cm and 3.5 x 2.4cm, most likely representing pelvic abscesses. Evaluated by IR and collections are smaller. 2) Fever: likely from 1. Resolved. Recommendations: - follow-up blood cultures - obtain C-reactive protein (CRP) - if not fever ok to d/c home on levaquin 750 mg PO q day and flagyl 500 mg PO TID for 10 days - ID clinic f/u in 2-3 weeks Condition at discharge: Good Disposition: DC-01 TO HOME OR SELFCARE - Discharge Diagnoses (1) Intra-abdominal abscess Status: Suspected (2) Postoperative pain Status: Resolved Plan - Discharge Medications Prescriptions: metroNIDAZOLE [Flagyl] 500 mg PO Q8HR #30 tablet levoFLOXacin [Levaquin] 750 mg PO QDAY #10 tablet oxyCODONE /ACETAMINOPHEN [Percocet 5/325] 1 tab PO Q6HR PRN #20 tablet PRN Reason: Pain - Provider Discharge Summary Activity: routine, no sex for 6 weeks, no heavy lifting 4 weeks, no strenuous exercise Diet: routine Instructions: routine Additional instructions: [] Smoking cessation referral if applicable(refer to patient education folder for contact #) [] Refer to [facility]'s [facility] Booklet Call your doctor immediately for: * Fever > 100.5 * Heavy vaginal bleeding ( >1 pad per hour) * Severe persistent headache * Shortness of breath * Reddened, hot, painful area to leg or breast * Drainage or odor from incision. * Keep incision clean and dry at all times and follow doctor's instructions regarding bathing/showering - Follow up plan Follow up: [facility] [Other] - 3-5 Days HILARY ELI MD [Staff Physician] - 7 Days
[2018-11-20] MEDS: PERCOCET 5/325 PO PRN (19:26)
[2018-11-20 21:14] VITALS: BP 137/85
== END 2018-11-20 20:00 | disposition home or self-care (01) | DRG 862 ==
LOC: ED 10:55 → OB 16:48
PROVIDERS: ADMIT Obstetrics & Gynecology; ATTEND Obstetrics & Gynecology
DX: T81.43XA Infection following a procedure, organ and space surgical site, initial encounter (principal); K65.1 Peritoneal abscess; N73.9 Female pelvic inflammatory disease, unspecified; Y83.8 Other surgical procedures as the cause of abnormal reaction of the patient, or of later complication, without mention of misadventure at the time of the procedure; E78.00 Pure hypercholesterolemia, unspecified; E11.9 Type 2 diabetes mellitus without complications; F17.200 Nicotine dependence, unspecified, uncomplicated; Y92.89 Other specified places as the place of occurrence of the external cause; Z90.710 Acquired absence of both cervix and uterus; Z79.84 Long term (current) use of oral hypoglycemic drugs
CPT/HCPCS: 36415; 74177; 80053; 81001; 82140; 85025; 86140; 87040; 87116; 96365; 96375; G0378; J0696; J1885; J2250; J2270; J2405; J2543; J3010; J7040; J7120; Q9967

== ENCOUNTER 2022-03-04 14:23 | Emergency (ER) | payer OTHER ==
[2022-03-04 16:07] LABS: Basophils # (Auto) 0.1 K/mm3 (0.0-0.1); Basophils % (Auto) 0.8 % (0.0-1.8); Eosinophils # (Auto) 0.1 K/mm3 (0.0-0.4); Eosinophils % (Auto) 0.9 % (0.0-4.3); Hematocrit 37.1 % (30.3-42.9); Hemoglobin 12.5 gm/dl (10.1-14.3); Lymphocytes # (Auto) 2.2 K/mm3 (1.2-5.4); Lymphocytes % (Auto) 29.3 % (13.4-35.0); Mean Corpuscular HGB Conc 34 % (30-34); Mean Corpuscular Volume 91 fl (79-97); Monocytes # (Auto) 0.5 K/mm3 (0.0-0.8); Monocytes % (Auto) 6.7 % (0.0-7.3); Platelet Count 237 K/mm3 (140-440); Red Blood Count 4.06 M/mm3 (3.65-5.03); Red Cell Distribution Width 13.9 % (13.2-15.2)
[2022-03-04] MEDS ORDERED: CLINDAMYCIN 600 MG/50 mL 600 MG/50 ML BAG IV ONE (16:11)
[2022-03-04] MEDS ORDERED: dexAMETHasone 4 MG/ML VIAL IV ONE (16:11)
[2022-03-04] MEDS ORDERED: HYDROmorphone 0.5 MG/0.5 ML INJ IV ONE (16:11)
[2022-03-04] MEDS ORDERED: SODIUM CHLORIDE 0.9% 1000 ML 1,000 ML IV ONE ×2 (16:12→17:27)
--- NOTE | 2022-03-04 16:17 | Emergency Department Report ---
Abscess Boil HPI - HPI Duration: >1 Week Location: Other Severity: Mild History: Yes Pain, Yes Purulent Drainage, Yes Previous History, No Fever, No Numbness, No Foreign Body, No Insect Bite HPI: 46 YO COMES TO ER WITH ABSCESS X 2 BOTH DRAINING AND SP I/D AT URGENT CARE. COMES TO ER BECAUSE THEY HURT. NO FEVER OR CHILLS. AMBULATORY NON ILL NON TOXIC ON EXAM. BRINGS HER PILLOW AND HEADSET TO ER. <BRITNEY MORENO - Last Filed: 03/05/22 07:40> <ROBERT BEAL - Last Filed: 03/05/22 13:57> - HPI Chief Complaint: Skin/Abscess/Foreign Body Stated Complaint: ABSCESS Time Seen by Provider: 03/04/22 15:33 Home Medications: Home Medications Medication Instructions Recorded Confirmed Last Taken Atorvastatin Calcium [Lipitor] 10 mg PO DAILY 11/05/18 11/19/18 11/08/18 09:00 Ferrous Sulfate [Iron 325 MG] 325 mg PO TID 11/05/18 11/19/18 11/08/18 09:00 Gabapentin [Neurontin] 300 mg PO BID 11/05/18 11/19/18 Unknown Vitamin D3 10,000 unit 1 tab PO QWEEK 11/05/18 11/19/18 11/09/18 09:00 Previous Rx's Medication Instructions Recorded Last Taken Type Acetaminophen/Codeine [Tylenol 1 tab PO Q6H PRN #12 tab 03/04/22 Unknown Rx /Codeine # 3 tab] Clindamycin [Clindamycin CAP] 300 mg PO Q8H #30 cap 03/04/22 Unknown Rx Ibuprofen [Motrin] 800 mg PO Q8HR PRN #30 tablet 03/04/22 Unknown Rx Ondansetron [Zofran Odt] 4 mg PO Q8HR PRN #10 tab.rapdis 03/04/22 Unknown Rx Allergies/Adverse Reactions: Allergies Allergy/AdvReac Type Severity Reaction Status Date / Time No Known Allergies Allergy Verified 03/04/22 14:52 ED Review of Systems ROS: Stated complaint: PILAR CYST Other details as noted in HPI Comment: All other systems reviewed and negative <BRITNEY MORENO - Last Filed: 03/05/22 07:40> ROS: Stated complaint: ABSCESS Other details as noted in HPI <ROBERT BEAL - Last Filed: 03/05/22 13:57> ED Past Medical Hx - Past Medical History Previous Medical History?: Yes Hx Hypertension: Yes Hx Congestive Heart Failure: No Hx Diabetes: Yes Hx GERD: Yes Hx Renal Disease: No Hx Sickle Cell Disease: Yes (Trait only) Hx Headaches / Migraines: Yes Hx Asthma: No Hx COPD: No Hx HIV: No Additional medical history: HIGH CHOLESTROL. OBESE - Surgical History Past Surgical History?: Yes Additional Surgical History: HYSTO - Family History Family history: no significant - Social History Smoking Status: Former Smoker Substance Use Type: None <BRITNEY MORENO - Last Filed: 03/05/22 07:40> <ROBERT BEAL - Last Filed: 03/05/22 13:57> - Medications Home Medications: Home Medications Medication Instructions Recorded Confirmed Last Taken Type Atorvastatin Calcium [Lipitor] 10 mg PO DAILY 11/05/18 11/19/18 11/08/18 09:00 History Ferrous Sulfate [Iron 325 MG] 325 mg PO TID 11/05/18 11/19/18 11/08/18 09:00 History Gabapentin [Neurontin] 300 mg PO BID 11/05/18 11/19/18 Unknown History Vitamin D3 10,000 unit 1 tab PO QWEEK 11/05/18 11/19/18 11/09/18 09:00 History Acetaminophen/Codeine [Tylenol 1 tab PO Q6H PRN #12 tab 03/04/22 Unknown Rx /Codeine # 3 tab] Clindamycin [Clindamycin CAP] 300 mg PO Q8H #30 cap 03/04/22 Unknown Rx Ibuprofen [Motrin] 800 mg PO Q8HR PRN #30 tablet 03/04/22 Unknown Rx Ondansetron [Zofran Odt] 4 mg PO Q8HR PRN #10 tab.rapdis 03/04/22 Unknown Rx ED Abscess Boil Physical Exam - Exam General: Vital signs noted. No distress. Alert and acting appropriately. Front/Back of Body, Lg (Color): 1 - LINEAR ABSCESS OF GLUT FOLD; SP I/D; DRAINING 2 - DIME SIZE ABSCESS/FOLLICULITIS WHICH IS IN HAIR OF MONS PUBIS ALSO DRAINING Size: 2 cm Exam: Yes Tenderness, Yes Surrounding Cellulites/Erythema, Yes Normal Neurologic Exam, Yes Normal Circulation, No Fluctuance, No Lymphangitis, No Crepitation, No Heart Murmur <BRITNEY MORENO - Last Filed: 03/05/22 07:40> - Exam General: Vital signs noted. No distress. Alert and acting appropriately. <ROBERT BEAL - Last Filed: 03/05/22 13:57> I & D Note - I & D Note I & D Note: WOUNDS ARE OPEN AND DRAINING <BRITNEY MORENO - Last Filed: 03/05/22 07:40> ED Course Vital Signs 03/04/22 14:49 Temperature 97.9 F Pulse Rate 113 H Respiratory 20 Rate Blood Pressure 136/96 [Right] O2 Sat by Pulse 98 Oximetry <BRITNEY MORENO A - Last Filed: 03/05/22 07:40> Vital Signs 03/04/22 03/04/22 14:49 20:20 Temperature 97.9 F 97.6 F Pulse Rate 113 H 90 Respiratory 20 18 Rate Blood Pressure 136/96 134/94 [Right] O2 Sat by Pulse 98 100 Oximetry <ROBERT BEAL - Last Filed: 03/05/22 13:57> Critical care attestation.: If time is entered above; I have spent that time in minutes in the direct care of this critically ill patient, excluding procedure time. <BRITNEY MORENO - Last Filed: 03/05/22 07:40> Critical care attestation.: If time is entered above; I have spent that time in minutes in the direct care of this critically ill patient, excluding procedure time. <ROBERT BEAL - Last Filed: 03/05/22 13:57> ED Medical Decision Making - Lab Data Result diagrams: 03/04/22 15:44 - Medical Decision Making DRAINING ABSCESS- purulent material ON AUGMENT. PER URGENT CARE IV CLINDA GIVEN HERE/1L NS MEDICATED FOR PAIN WILL CHANGE ANTIBIOTIC TO CLINDA PT IS NON ILL APPEARING NO FEVER OR CHILLS HR ON EXAM 90 AMBULATORY TAKING PO SHE HAS HAD THESE BEFORE AND DOES NOT FOLLOW UP INSTRUCTED. WBC normal lactate noted- repeated and downtrending on d/c ambulatory and non ill she has been educated on appropriate care and management. she has been given a referral to Dr Harrison for her open and draining abscesses- recurrent- for definitive care Lab Results 03/04/22 03/04/22 03/04/22 Range/Units 15:44 15:44 18:00 WBC 7.3 (4.5-11.0) K/mm3 RBC 4.06 (3.65-5.03) M/mm3 Hgb 12.5 (10.1-14.3) gm/dl Hct 37.1 (30.3-42.9) % MCV 91 (79-97) fl MCH 31 (28-32) pg MCHC 34 (30-34) % RDW 13.9 (13.2-15.2) % Plt Count 237 (140-440) K/mm3 Lymph % (Auto) 29.3 (13.4-35.0) % [place] % (Auto) 6.7 (0.0-7.3) % Eos % (Auto) 0.9 (0.0-4.3) % Baso % (Auto) 0.8 (0.0-1.8) % Lymph # (Auto) 2.2 (1.2-5.4) K/mm3 [place] # (Auto) 0.5 (0.0-0.8) K/mm3 Eos # (Auto) 0.1 (0.0-0.4) K/mm3 Baso # (Auto) 0.1 (0.0-0.1) K/mm3 Seg Neutrophils % 62.3 (40.0-70.0) % Seg Neutrophils # 4.6 (1.8-7.7) K/mm3 Lactic Acid 3.90 H* 1.90 (0.7-2.0) mmol/L Vital Signs 03/04/22 03/04/22 14:49 20:20 Temperature 97.9 F 97.6 F Pulse Rate 113 H 90 Respiratory 20 18 Rate Blood Pressure 136/96 134/94 [Right] O2 Sat by Pulse 98 100 Oximetry - Differential Diagnosis A/C ABSCESS <PROVINS-CHURBOCK,BRITNEY A - Last Filed: 03/05/22 07:40> - Lab Data Result diagrams: 03/04/22 15:44 - Medical Decision Making Patient was managed independently by the mid level below , I was available for consult but i wasn't directly involved in the care of this patient <LIANROBERT - Last Filed: 03/05/22 13:57> ED Disposition Is pt being admited?: No Does the pt Need Aspirin: No Time of Disposition: 17:16 <BRITNEY MORENO A - Last Filed: 03/05/22 07:40> Is pt being admited?: No Does the pt Need Aspirin: No <KIMBERLY BEALDAHLIA - Last Filed: 03/05/22 13:57> Clinical Impression: Abscess Disposition: 01 HOME / SELF CARE / HOMELESS Condition: Stable Instructions: Skin Abscess Additional Instructions: STOP AUGMENT. ANTIBIOTIC take meds as ordered today soak in warm bath of epsom salts three times per day for 20min each time. this helps drain abscess follow up with DR PAGE emerson referral below she can get rid of this once and for all in such a way it does not come back Prescriptions: Clindamycin [Clindamycin CAP] 300 mg PO Q8H #30 cap Ibuprofen [Motrin] 800 mg PO Q8HR PRN #30 tablet PRN Reason: Pain, Moderate (4-6) Acetaminophen/Codeine [Tylenol /Codeine # 3 tab] 1 tab PO Q6H PRN #12 tab PRN Reason: Pain , Severe (7-10) Ondansetron [Zofran Odt] 4 mg PO Q8HR PRN #10 tab.rapdis PRN Reason: Vomiting Referrals: TIM HARRISON MD [Staff Physician] - 3-5 Days JARRETT FREITAS MD [Staff Physician] - 3-5 Days Forms: Work/School Release Form(ED)
[2022-03-04] MEDS ORDERED: HYDROcodone/ACETAMINOPHEN 5-325 MG TAB PO ONE (18:15)
[2022-03-04 20:44] VITALS: BP 134/94
== END 2022-03-04 20:20 | disposition home or self-care (01) ==
LOC: ED 14:23
DX: L02.91 Cutaneous abscess, unspecified (principal); I10 Essential (primary) hypertension; E11.9 Type 2 diabetes mellitus without complications; K21.9 Gastro-esophageal reflux disease without esophagitis; D57.1 Sickle-cell disease without crisis; G43.909 Migraine, unspecified, not intractable, without status migrainosus; Z79.899 Other long term (current) drug therapy
CPT/HCPCS: 36415; 82140; 85025; 96361; 96365; 96375; 99283; J1100; J1170; J7030; J7502

== ENCOUNTER 2022-04-16 20:43 | Emergency (ER) | payer OTHER ==
[2022-04-16 21:02] VITALS: BP 135/98
== END 2022-04-17 16:36 | disposition left against medical advice (07) ==
LOC: ED 20:43
DX: Z04.1 Encounter for examination and observation following transport accident (principal); Z53.21 Procedure and treatment not carried out due to patient leaving prior to being seen by health care provider; V87.7XXA Person injured in collision between other specified motor vehicles (traffic), initial encounter; Y93.89 Activity, other specified; Y92.488 Other paved roadways as the place of occurrence of the external cause; Y99.8 Other external cause status